=== PATIENT | female | born 1940 | race Caucasian/White ===

== ENCOUNTER → 2016-05-14 | Outpatient (CLI) | payer MEDICARE, BC ==
[2016-05-14 13:46] LABS: Calcium 10.1 mg/dL (8.4-10.2); Total Bilirubin 0.5 mg/dL (0.2-1.3)
== END ==
LOC: LABWHC1 12:45
PROVIDERS: ATTEND Internal Medicine Endocrinology, Diabetes & Metabolism
DX: E21.0 Primary hyperparathyroidism (principal); E03.8 Other specified hypothyroidism
CPT/HCPCS: 36415; 80053; 82306; 83970; 84443

== ENCOUNTER → 2016-05-28 | Outpatient (CLI) | payer MEDICARE, BC ==
--- NOTE | 2016-05-29 09:54 | MM ---
Reason for exam: screening (asymptomatic). Last mammogram was performed 5 years and 5 months ago. History: Patient is postmenopausal. Benign left mammotome panel of the left breast, December 22, 2010. Benign excisional biopsy of both breasts, 1979. Took estrogen for 9 years beginning at age 55. Physical Findings: A clinical breast exam by your physician is recommended on an annual basis and results should be correlated with mammographic findings. MG 3D Screening Mammo W/Cad Bilateral CC and MLO view(s) were taken. Prior study comparison: December 13, 2010, [facility] DIGITAL LEFT BREAST MAMMOGRAM w/CAD. December 07, 2010, bilateral digital screening mammo w/CAD. There are scattered fibroglandular densities. Finding: There are typically benign calcifications. There is no discrete abnormality. No significant changes in finding since December 13, 2010 and December 07, 2010. ASSESSMENT: Benign, BI-RAD 2 RECOMMENDATION: Routine screening mammogram of both breasts in 1 year.
== END ==
LOC: RADMAMWWP 07:42
PROVIDERS: ATTEND Family Medicine
DX: Z12.31 Encounter for screening mammogram for malignant neoplasm of breast (principal)
CPT/HCPCS: 77063; G0202

== ENCOUNTER → 2016-05-28 | Outpatient (CLI) | payer MEDICARE, BC ==
--- NOTE | 2016-05-28 15:18 | BD ---
EXAMINATION TYPE: MG DEXA axial skeleton. DATE OF EXAM: 05/28/2016 7:46 AM COMPARISON: NONE CLINICAL HISTORY: 75-year-old female primary hyperparathyroidism Height: 62.5 IN Weight: 148 LBS FRAX RISK QUESTIONS: Alcohol (3 or more units per day): NO Family History (Parent hip fracture): NO Glucocorticoids (More than 3mos): NO (Ex: prednisone, prednisolone, methylprednisolone, dexamethasone, and hydrocortisone). History of Fracture in Adulthood: YES LT HAND AGE 54 Secondary Osteoporosis: 1. Type 1 Diabetes: NO 2. Hyperthyroidism: YES 3. Menopause before 45: NO 4. Malnutrition: NO 5. Chronic liver disease: NO Rheumatoid Arthritis: NO Current Tobacco Use: NO RISK FACTORS HISTORY OF: Other Fractures since Age 49: YES LT HAND When: AGE 54 Family History of Osteoporosis: NO Active: YES Postmenopausal woman: AGE 55 Take estrogen and/or progesterone medications: NOT NOW How long: AGE 55 - 64 Hyperthyroidism: YES Hyperparathyroidism: YES MEDICATIONS: Thyroid Medications: YES Which medication: Levothyroxine How Lon + YRS Additional Medications: VIT D3, LEVOTHYROXINE, BLOOD PRESSURE MEDS, LIPITOR, ASPIRIN, EXAM MEASUREMENTS: Bone mineral densitometry was performed using the [employer] System. Bone mineral density as measured about the Lumbar spine is: ----- L1-L4(G/cm2): 0.980 T Score Values are as follows: ----- L2: -1.7 ----- L3: -1.0 ----- L4: -1.8 ----- L1-L4: -1.7 Bone mineral density has: Decreased -10.1% since study of: 08/09/2004 Bone mineral density about the R hip (g/cm2): 0.788 Bone mineral density about the L hip (g/cm2): 0.798 T Score values are as follows: -----R Neck: -1.8 -----L Neck: -1.7 -----R Intertrochanter: -1.0 -----L Intertrochanter: -0.7 Bone mineral density has: Decreased -9.5% since study of: 08/09/2004 IMPRESSION: Osteopenia as indicated by T score values in the lumbar spine and both hips. There is slightly increased risk of fracture and the patient may be considered for treatment. Re-Screen 2-5 years. NOTE: T-SCORE=SD OF THE YOUNG ADULT MEAN.
== END | disposition home or self-care (01) ==
LOC: RADBDWWP 07:45
PROVIDERS: ATTEND Internal Medicine Endocrinology, Diabetes & Metabolism
DX: M85.89 Other specified disorders of bone density and structure, multiple sites (principal)
CPT/HCPCS: 77080

== ENCOUNTER → 2016-08-06 | Outpatient (CLI) | payer MEDICARE, BC ==
[2016-08-06 12:00] LABS: Calcium 9.7 mg/dL (8.4-10.2); Potassium 4.9 mmol/L (3.5-5.1); Total Bilirubin 0.3 mg/dL (0.2-1.3); Total Protein 6.8 g/dL (6.3-8.2)
== END | disposition home or self-care (01) ==
LOC: LABWHC1 11:03
PROVIDERS: ATTEND Internal Medicine Endocrinology, Diabetes & Metabolism
DX: E21.0 Primary hyperparathyroidism (principal); E03.8 Other specified hypothyroidism
CPT/HCPCS: 36415; 80053; 82306; 83970; 84443

== ENCOUNTER → 2016-11-14 | Outpatient (CLI) | payer MEDICARE, BC ==
[2016-11-14 10:42] LABS: CH 30.4; CHCM 33.5; HCT 34.9 % (34.0-46.0); HDW 2.37; MCH 28.9 pg (25.0-35.0); MCHC 31.6 g/dL (31.0-37.0); MCV 91.2 fL (80.0-100.0); Mean Platelet Volume 7.5; RBC 3.82 m/uL (3.80-5.40); RDW 13.8 % (11.5-15.5); WBC 6.4 k/uL (3.8-10.6)
[2016-11-14 11:23] LABS: Calcium 9.2 mg/dL (8.4-10.2); Potassium 4.3 mmol/L (3.5-5.1); Total Bilirubin 0.3 mg/dL (0.2-1.3); Total Protein 6.9 g/dL (6.3-8.2)
== END | disposition home or self-care (01) ==
LOC: LABWHC1 10:20
PROVIDERS: ATTEND Internal Medicine Endocrinology, Diabetes & Metabolism
DX: E21.0 Primary hyperparathyroidism (principal); E03.8 Other specified hypothyroidism
CPT/HCPCS: 36415; 80053; 82306; 83970; 84443; 85027

== ENCOUNTER → 2016-11-22 | Outpatient (CLI) | payer MEDICARE, BC ==
--- NOTE | 2016-11-22 13:11 | XR ---
Lumbosacral spine HISTORY: Low back pain 5 views of the lumbosacral spine No comparisons Lumbar vertebral bodies show reduced bone mineralization. Anterolisthesis grade 1 L5-S1 with associat ed loss of disc height. There is multilevel spondylosis. Sclerosis present in the posterior elements. No spondylolysis is evident. There is a mild spinal curvature. Surgical jaime in the right upper q uadrant. Lumbar vertebral body height is maintained. IMPRESSION: Osteopenia, degenerative disc disease, facet arthropathy, spondylolisthesis, scoliosis. N o acute fracture or subluxation.
== END ==
LOC: RADXRYALE 11:56
PROVIDERS: ATTEND Physician Assistant Medical
DX: M43.16 Spondylolisthesis, lumbar region (principal); M51.36 Other intervertebral disc degeneration, lumbar region; M46.86 Other specified inflammatory spondylopathies, lumbar region; M41.86 Other forms of scoliosis, lumbar region; M85.80 Other specified disorders of bone density and structure, unspecified site
CPT/HCPCS: 72110

== ENCOUNTER → 2017-01-02 | Outpatient (CLI) | payer MEDICARE, BC | END | disposition home or self-care (01) | LOC: LABWHC1 10:43 | PROVIDERS: ATTEND Internal Medicine Endocrinology, Diabetes & Metabolism | DX: Z53.9 Procedure and treatment not carried out, unspecified reason (principal) ==

== ENCOUNTER → 2017-06-04 | Outpatient (CLI) | payer MEDICARE, BC ==
--- NOTE | 2017-06-04 15:52 | US ---
EXAMINATION TYPE: US thyroid st tissue head/neck DATE OF EXAM: 06/04/2017 COMPARISON: US CLINICAL HISTORY: E03.9 hypothyroidism E21.3 hyperparathyroidism...; patient state feels palpable upp er bilateral neck and history of lower parathyroid nodule removed GLAND SIZE: Right Lobe: 4.5 x 1.2 x 1.1 cm Overall Parenchyma: homogenous Left Lobe: 3.4 x 1.2 x 1.4 cm Overall Parenchyma: homogeneous Isthmus Thickness: 0.3 cm NODULES RIGHT: # of nodules measured on right: 0 LEFT: # of nodules measured on left: 0 ISTHMUS: # of nodules measured in the isthmus: 0 Bilateral neck scanned: superior to right thyroid an oval hypoechoic mass is noted at patient's c/o p alpable and size =1.0 x 1.1 x 0.5cm and may be lymph node. IMPRESSION: Probable lymph node as noted above. Thyroid gland is unremarkable.
== END | disposition home or self-care (01) ==
LOC: RADUSWWP 14:56
PROVIDERS: ATTEND Family Medicine
DX: E03.9 Hypothyroidism, unspecified (principal); E21.3 Hyperparathyroidism, unspecified; R49.0 Dysphonia
CPT/HCPCS: 76536

== ENCOUNTER → 2017-07-26 | Outpatient (CLI) | payer MEDICARE, BC ==
--- NOTE | 2017-07-27 09:58 | CT ---
EXAMINATION TYPE: CT soft tissue neck wo con DATE OF EXAM: 07/26/2017 HISTORY: Pain; Hoarseness COMPARISON: NONE CT DLP: 282.2 mGycm. Automated Exposure Control for Dose Reduction was Utilized. TECHNIQUE: Departmental protocol with imaging from the nasopharynx contiguously to the tino. Intra venous contrast was not used. Axial and coronal and sagittal sequences were obtained. FINDINGS: Airway: There is mild/moderate airway effacement on the left at the level of the left vallecula and p iriform sinus; direct visualization can further characterize. Salivary glands: No gross abnormality seen. Vascular Structures: Mild atherosclerotic intimal calcifications appreciated, no ectasia. Cervical/supraclavicular adenopathy: None. Osseous Structures: No focal findings. Relatively mild multilevel cervical spondylosis changes are no radames. Other: The sphenoid sinus, bilateral ethmoids, and bilateral maxillary sinuses are clear. Bilateral m iddle ear cavities and lateral mastoid sinus air cells are clear. IMPRESSION: 1. Effacement of the left vallecula and piriform sinus, request direct visualization. 2. No adenopathy.
== END | disposition home or self-care (01) ==
LOC: RADCTMAIN 09:06
PROVIDERS: ATTEND Internal Medicine
DX: R49.0 Dysphonia (principal)
CPT/HCPCS: 70490

== ENCOUNTER → 2017-09-30 | Outpatient (CLI) | payer MEDICARE, BC | END | disposition home or self-care (01) | LOC: LABWHC1 13:36 | PROVIDERS: ATTEND Otolaryngology | DX: E06.9 Thyroiditis, unspecified (principal) | CPT/HCPCS: 36415; 86376 ==

== ENCOUNTER → 2019-01-05 | Outpatient (CLI) | payer MEDICARE, BC ==
[2019-01-05 12:33] VITALS: BP 147/63; PULSE 86; RESP 16
--- NOTE | 2019-01-05 13:21 | P.PAINCN ---
History of Present Illness - Reason for Consult Consult date: 01/05/19 - History of Present Illness This is a 78 years old female with a chronic history of severe neck pain started more than 2 years ago, which is increased with any neck movement, intensity of the pain increased over the last few months, it's constant and increases with any neck movement, patient denies any motor deficit in her upper extremity, she reports a few rare occasions of numbness and tingling sensation of the medial aspect of her left hand, she reported that the intensity of the pain is 6/10 increased with any activity, interfering with her quality of life, she denies any fever or night sweats which she denies any change in the bowel movements or urination, she tried physical therapy with minimal benefit, she tried steroid orally and she had only short-term benefit from it . Past Medical History Past Medical History: Hyperlipidemia, Hypertension, Osteoarthritis (OA), Thyroid Disorder Additional Past Medical History / Comment(s): hx shingles and [place] Palsy on lt side History of Any Multi-Drug Resistant Organisms: None Reported Past Surgical History: Appendectomy, Breast Surgery, Cholecystectomy, Hysterectomy, Orthopedic Surgery Additional Past Surgical History / Comment(s): benign tumors removed from bilat breat. bilat foot sx. colonoscopy Past Anesthesia/Blood Transfusion Reactions: Motion Sickness Smoking Status: Never smoker - Past Family History Mother Family Medical History: Cancer Medications and Allergies Home Medications Medication Instructions Recorded Confirmed Type Aspirin 325 mg PO DAILY 01/01/19 01/01/19 History Atorvastatin [Lipitor] 40 mg PO DAILY 01/01/19 01/01/19 History Enalapril [Vasotec] 10 mg PO BID 01/01/19 01/01/19 History Gabapentin [Neurontin] 300 mg PO DAILY PRN 01/01/19 01/01/19 History Levothyroxine Sodium [Synthroid] 50 mcg PO DAILY 01/01/19 01/01/19 History amLODIPine [Norvasc] 5 mg PO DAILY 01/01/19 01/01/19 History Allergies Allergy/AdvReac Type Severity Reaction Status Date / Time bee venom protein (honey bee) Allergy Anaphylaxis Verified 01/01/19 15:24 codeine Allergy Rash/Hives Verified 01/01/19 15:24 erythromycin base Allergy Rash/Hives Verified 01/01/19 15:24 Penicillins Allergy Rash/Hives Verified 01/01/19 15:24 Sulfa (Sulfonamide Allergy Rash/Hives Verified 01/01/19 15:24 Antibiotics) vancomycin Allergy Rash/Hives Verified 01/01/19 15:24 Physical Exam Vitals: Vital Signs Pulse Resp BP Pulse Ox 01/05/19 12:30 86 16 147/63 100 REVIEW OF ORGAN SYSTEMS: CONSTITUTIONAL: No fevers or chills. No recent weight loss. EYES: denies troubles with vision. HEENT: No difficulties with hearing. No nosebleeds. No difficulty swallowing. RESPIRATORY: Denies any troubles with breathing or dyspnea on exertion. CARDIOVASCULAR: Denies any chest pain, palpitations, or recent heart attacks. GASTROINTESTINAL: Denies fatty food intolerance. Has change in bowel habits and gas bloat. GENITOURINARY: Denies any blood in urine. Has increased urinary frequency. NEUROLOGICAL: no numbness and tingling along the upper extremities. No seizure disorders or headaches. MUSCULOSKELETAL: Has neck pain. Mainly on the left side SKIN:no skin cancer. No rash. PSYCHIATRIC: Denies current depression or suicidal thoughts. ENDOCRINE: Denies current thyroid disorders. Denies any blood sugar glucose intolerance. HEME/LYMPHATIC: Denies any lumps and bumps around the neck. History of deep venous thrombosis. ALLERGY/IMMUNOLOGY: No immunoglobulin therapy. No immune deficiencies. BREAST: Denies current breast lumps, pain or nipple discharge. Physical Examinations : Constitutiona : Cooperative , not in acute distress . HEENT : nech : supple , no Lymphadenopathy , normal thyroid size . : eyes no ptosis , no icterus, no photophobia . : ENT normal of hearing , normal oropharynx , no Thrush . Respiratory : Chest clear to auscultations Bilaterally , no wheezing , no Rhonchi . Cardiovascula : regular rate and rhythem , S1 , S2 , no S3 , no S4. Gastrointestina : abdomen soft no tenderness , bowel sounds , no organomegally . Genitourinary : Defferred . neurologic : Cranial nerve II to XII intact , no focal neurological deffecit . psychatric : alert , oriented X 3 , appropriate affect , intact judgment and insight . Lymphatic : no Lymphadenopathy . musculoskeltal : Cervical Spine motor stregnth in the deltoid and biceps, normal right side , normal Left side motor stregnth biceps and the wrist extensors normal right side ,normal left side . motor stregnth in the triceps muscle . normal Right side , normal Left side deep tendon reflexes= normal at the biceps , normal at Brachioradialis , normal at triceps. cervical facet loading test: Positive on the left side Spurling test= positive on the left side . Neck distraction test= positive on the left side . Steve sign= positive on the left side . Lumber spine moter stegnth lower extremities ,thigh and legs 5/5 Right side , 5/5 Left side Results Comments: MRI of the cervical spine done at [facility] showed C3 4 C4 5 and C5 6 C6 7 bulging disc disease Assessment and Plan Plan: Assessment and plan= chronic neck pain secondary to cervical degenerative disc disease and cervical spondylosis with cervical facet arthropathy Patient will be scheduled to have cervical epidural steroid injection at C6 7 or C7-T1 left paramedian approach, if she continued to have neck pain after the epidural steroid injection then she will be a candidate to have diagnostic medial branch block cervical area Time with Patient: Greater than 30 PQRS Measure Charge Sheet Measure #130: Documentation of Current Meds in Medical Chart: Patient's medications documented in chart Measure #226: Tobacco Use: Screen & Cessation Intervention: Pt not a tobacco user Measure #111: Pneumonia Vaccination: Pneumococcal vaccine administered or previously received Measure #47: Advance Care Plan: Advance care planning discussed & documented, pt chose/unable to give Measure #412: Opioid Treatment Agreement: No documentation of signed opioid treatment agreement Measure #408: Opioid Therapy Follow-up Evaluation: Patient had NO f/u eval minimum every 3 months during opioid therapy Measure #317: Preventitive Care & Scrn High Bld Press & F/U: Pre-hypertensive or hypertensive BP documented, pt will f/u with PCP Measure #128: Body Mass Index (BMI) Screening & Follow-up: BMI documented within normal parameters Measure #131: Pain Assessment & Follow-up: Pain positive & plan documented, Follow-up scheduled Measure #431: Unhealthy Alcohol Use Preventative Care & Scrn: Patient not eleazar ntified as an unhealthy alcohol user PQRS Narrative: Smoking Status Never smoker Blood Pressure 147/63 Pain Intensity [Left Neck] 4 Scale Used Numeric (1 - 10) Hx Alcohol Use (MH) No Home Medications: Ambulatory Orders Aspirin 325 mg PO DAILY 01/01/19 Atorvastatin [Lipitor] 40 mg PO DAILY 01/01/19 Enalapril [Vasotec] 10 mg PO BID 01/01/19 Gabapentin [Neurontin] 300 mg PO DAILY PRN 01/01/19 Levothyroxine Sodium [Synthroid] 50 mcg PO DAILY 01/01/19 amLODIPine [Norvasc] 5 mg PO DAILY 01/01/19
== END | disposition home or self-care (01) ==
LOC: PNWHC3 11:45
PROVIDERS: ATTEND Specialist
DX: M47.812 Spondylosis without myelopathy or radiculopathy, cervical region (principal); M50.30 Other cervical disc degeneration, unspecified cervical region; I10 Essential (primary) hypertension; M19.90 Unspecified osteoarthritis, unspecified site; E07.9 Disorder of thyroid, unspecified; E78.5 Hyperlipidemia, unspecified; Z88.0 Allergy status to penicillin; Z79.82 Long term (current) use of aspirin; Z79.891 Long term (current) use of opiate analgesic; Z79.899 Other long term (current) drug therapy; Z79.890 Hormone replacement therapy; Z88.1 Allergy status to other antibiotic agents; Z88.2 Allergy status to sulfonamides; Z88.5 Allergy status to narcotic agent; Z91.030 Bee allergy status; Z98.890 Other specified postprocedural states
CPT/HCPCS: 99211

== ENCOUNTER 2019-01-13 08:20 | Day surgery (SDC) | payer MEDICARE, BC ==
[2019-01-07 13:09] VITALS: BMI 23.0
[2019-01-13 09:14] VITALS: RESP 16; TEMP 97
[2019-01-13] MEDS: LACTATED RINGERS 1,000 ML IV SCH ×2 (09:24→10:02)
[2019-01-13] MEDS ORDERED: LIDOCAINE 1% 20 ML VIAL (10MG/ML) FOR IV START INTRADERMA ONE (09:24)
--- NOTE | 2019-01-13 10:19 | P.PCN ---
Date of Procedure: 01/13/19 Procedure(s) Performed: . PROCEDURE 1. Cervical epidural steroid injection under fluoroscopic guidance, C6-7 (fluoroscopy images available in the radiology department ) 2. Cervical epidurogram. PREOPERATIVE DIAGNOSIS: 1- Cervical Degenerative Disc Diseases 2-cervical spondylosis with cervical Facet arthropathy without myelopathy POSTOPERATIVE DIAGNOSIS: : 1- Cervical Degenerative Disc Diseases , 2-cervical spondylosis with cervical Facet arthropathy without myelopathy ANESTHESIA: Local anesthesia with lidocaine 1 % 3 ml only . EBL 0 PROCEDURE INDICATION: The patient with neck pain and radiculitis unresponsive to conservative treatment consents for procedure. PROCEDURE DESCRIPTION / TECHNIQUE: The patient was seen and identified in the preoperative area. Risks, benefits, complications, including but not limited to infections ,bleeding , allergic reactions to the medications ,and not complete pain releife, and alternatives were discussed with the patient, the patient agreed to proceed with the procedure and signed the consent. Patient was taken to the OR and time out was completed. The patient was placed in the prone position on the procedure table. A pillow was placed under the patients chest to increase the cervical interlaminar space. The cervical area was prepped and draped in the usual sterile fashion. Vital signs were closely monitored during the procedure. Using anterior-posterior fluoroscopy, the C6-7 interlaminar space was identified and the skin over this site was marked and then infiltrated with 1% lidocaine subcutaneously. Subsequently, a 20-gauge 3-1/2-inch Tuohy epidural needle was inserted and advanced toward the epidural space by means of the ``hanging-drop technique and guided by AP and lateral fluoroscopy. The correct needle position in the epidural space was verified with the injection of 2 mL of the water soluble contrast dye [id number]-200 and observing an excellent epidurogram with the epidural spread of the dye, after negative aspiration for blood and CSF and in the absence of paresthesias. Again after negative aspiration, mixture containing 20 mg Dexamethasone and 2 ml of preservative-free normal saline injected and a washout of epidurogram was seen. Needle was withdrawn intact, skin was cleansed, and bandages were applied. Complications= none. Disposition= patient was placed in supine position and transferred to the recovery room area in stable condition and there was no evidence of upper or lower extremity motor or sensory deficit after the procedure patient was discharged from recovery room after discharge criteria met and home discharge instructions was given by the staff and patient will follow with the pain clinic in 2-4 weeks
[2019-01-13] MEDS ORDERED: LACTATED RINGERS 1,000 ML IV ONE (10:28)
[2019-01-13 10:46] VITALS: BP 157/67; PULSE 80
--- NOTE | 2019-01-13 10:47 | FL ---
EXAMINATION TYPE: FL guided pain mgmt statistic DATE OF EXAM: 01/13/2019 HISTORY: Flouroscopy time 12 seconds of fluoroscopy provided. IMPRESSION: 1. Fluoroscopy time.
== END 2019-01-13 10:58 | disposition home or self-care (01) ==
LOC: ORPAIN 08:20
PROVIDERS: ATTEND Specialist
DX: G89.29 Other chronic pain (principal); M47.22 Other spondylosis with radiculopathy, cervical region; M50.123 Cervical disc disorder at C6-C7 level with radiculopathy; I10 Essential (primary) hypertension; M19.90 Unspecified osteoarthritis, unspecified site; E78.5 Hyperlipidemia, unspecified; E07.9 Disorder of thyroid, unspecified; Z86.19 Personal history of other infectious and parasitic diseases; G51.0 Bell's palsy; Z90.49 Acquired absence of other specified parts of digestive tract; Z98.890 Other specified postprocedural states; Z90.710 Acquired absence of both cervix and uterus; Z79.82 Long term (current) use of aspirin; Z79.890 Hormone replacement therapy; Z79.899 Other long term (current) drug therapy; Z91.030 Bee allergy status; Z88.5 Allergy status to narcotic agent; Z88.1 Allergy status to other antibiotic agents; Z88.0 Allergy status to penicillin; Z88.2 Allergy status to sulfonamides
CPT/HCPCS: 62321; J1100; Q9966

== ENCOUNTER 2019-01-28 08:03 | Day surgery (SDC) | payer MEDICARE, BC ==
[2019-01-27 10:23] VITALS: BMI 23.0
[~2019-01-28 08:03] MED LIST: LACTATED RINGERS 1,000 ML IV SCH
[2019-01-28 08:45] VITALS: RESP 16; TEMP 98.1
[2019-01-28] MEDS ORDERED: LIDOCAINE 1% 20 ML VIAL (10MG/ML) FOR IV START INTRADERMA ONE (08:45)
--- NOTE | 2019-01-28 09:18 | P.PCN ---
Date of Procedure: 01/28/19 Procedure(s) Performed: PROCEDURE 1. Cervical epidural steroid injection under fluoroscopic guidance, C6-7 (fluoroscopy images available in the radiology department ) 2. Cervical epidurogram. PREOPERATIVE DIAGNOSIS: 1- Cervical Degenerative Disc Diseases 2-cervical spondylosis with cervical Facet arthropathy without myelopathy POSTOPERATIVE DIAGNOSIS: : 1- Cervical Degenerative Disc Diseases , 2-cervical spondylosis with cervical Facet arthropathy without myelopathy ANESTHESIA: Local anesthesia with lidocaine 1 % 3 ml only . EBL 0 PROCEDURE INDICATION: The patient with neck pain and radiculitis unresponsive to conservative treatment consents for procedure. PROCEDURE DESCRIPTION / TECHNIQUE: The patient was seen and identified in the preoperative area. Risks, benefits, complications, including but not limited to infections ,bleeding , allergic reactions to the medications ,and not complete pain releife, and alternatives were discussed with the patient, the patient agreed to proceed with the procedure and signed the consent. Patient was taken to the OR and time out was completed. The patient was placed in the prone position on the procedure table. A pillow was placed under the patients chest to increase the cervical interlaminar space. The cervical area was prepped and draped in the usual sterile fashion. Vital signs were closely monitored during the procedure. Using anterior-posterior fluoroscopy, the C6-7 interlaminar space was identified and the skin over this site was marked and then infiltrated with 1% lidocaine subcutaneously. Subsequently, a 20-gauge 3-1/2-inch Tuohy epidural needle was inserted and advanced toward the epidural space by means of the ``hanging-drop technique and guided by AP and lateral fluoroscopy. The correct needle position in the epidural space was verified with the injection of 2 mL of the water soluble contrast dye [id number]-200 and observing an excellent epidurogram with the epidural spread of the dye, after negative aspiration for blood and CSF and in the absence of paresthesias. Again after negative aspiration, mixture containing 20 mg Dexamethasone and 2 ml of preservative-free normal saline injected and a washout of epidurogram was seen. Needle was withdrawn intact, skin was cleansed, and bandages were applied. Complications= none. Disposition= patient was placed in supine position and transferred to the recovery room area in stable condition and there was no evidence of upper or lower extremity motor or sensory deficit after the procedure patient was discharged from recovery room after discharge criteria met and home discharge instructions was given by the staff and patient will follow with the pain clinic in 2-4 weeks
[2019-01-28] MEDS ORDERED: LACTATED RINGERS 1,000 ML IV ONE (09:21)
[2019-01-28 09:33] VITALS: BP 129/78; PULSE 80
--- NOTE | 2019-01-28 13:09 | FL ---
Fluoroscopy HISTORY: Pain 7 seconds fluoroscopy time supplied to the referring clinician. 1 intraoperative C-arm images docume nt the procedure. See dictated report from anesthesia.
== END 2019-01-28 09:58 | disposition home or self-care (01) ==
LOC: ORPAIN 08:03
PROVIDERS: ATTEND Specialist
DX: M50.10 Cervical disc disorder with radiculopathy, unspecified cervical region (principal); M47.22 Other spondylosis with radiculopathy, cervical region; E03.9 Hypothyroidism, unspecified; Z88.0 Allergy status to penicillin; Z88.2 Allergy status to sulfonamides; Z88.5 Allergy status to narcotic agent; Z88.1 Allergy status to other antibiotic agents; Z79.82 Long term (current) use of aspirin
CPT/HCPCS: 62321; J1100; Q9966

== ENCOUNTER → 2020-04-26 | Outpatient (CLI) | payer MEDICARE, BC ==
--- NOTE | 2020-04-26 13:31 | XR ---
EXAMINATION TYPE: XR chest 2V DATE OF EXAM: 04/26/2020 COMPARISON: 11/30/2011 TECHNIQUE: PA and lateral views submitted. HISTORY: Chest pain FINDINGS: The lungs are clear and there is no pneumothorax, pleural effusion, or focal pneumonia. Coarsened i nterstitium. Heart size normal. No pneumothorax. IMPRESSION: 1. Coarsened interstitium with basilar subsegmental atelectasis favored over pneumonia. Correlate for chronic interstitial lung disease, interstitial pneumonitis both of which are favored over venous co ngestion.
== END ==
LOC: RADXRMAIN 13:04
PROVIDERS: ATTEND Internal Medicine
DX: J98.11 Atelectasis (principal)
CPT/HCPCS: 71046

== ENCOUNTER → 2020-05-05 | Outpatient (CLI) | payer MEDICARE, BC ==
[~2020-05-05] MED LIST changes: -LACTATED RINGERS 1,000 ML IV SCH; +REGADENOSON 0.4 MG/5 ML SYRINGE IV PRN
--- NOTE | 2020-05-05 11:22 | P.STRESS ---
- Stress Test Note Stress Test Results/Findings: Exam Performed: NM stress lexiscan cardiolite Exam Date: 05/05/20 Reason for Exam: CHEST PAIN Height: 5 ft 3 in Weight: 61.4 kg Protocol: LEXISCAN Stage: N/A Duration of Exercise: 6 MINUTES Resting Heart Rate: 76 Resting Blood Pressure: 143/73 Maximum Achieved Heart Rate: 89 Maximum Achieved Blood Pressure: 143/73 85% PMHR: 119 100% PMHR: 140 METS: N/A Technologist Comment: Stress Test Results/Findings: This is a 79-year-old female with history of hypertension, family history and hypercholesteremia being evaluated for symptoms of chest pain. Stress data: Baseline EKG showed sinus rhythm with normal RI interval and QRS duration. A standard dose of Lexiscan was infused. EKGs during and after infusion did not reveal any significant changes. Final impression: #1. Negative Lexiscan stress test #2. Report on the nuclear images to be provided by the radiologist
--- NOTE | 2020-05-05 12:32 | NM ---
EXAMINATION TYPE: NM stress lexiscan cardiolite DATE OF EXAM: 05/05/2020 COMPARISON: NONE HISTORY: Chest pain TECHNIQUE: After the intravenous administration of 9.5 mCi Tc 99m Sestamibi - Cardiolite resting SPE CT images acquired 45 minutes post injection. The patient received 0.4mg Lexiscan, 24.5 mCi Tc 99m Sestamibi - Stress images obtained [address] injection FINDINGS: Review of stress and rest SPECT images demonstrates no distinct perfusion abnormality. Gated analysi s shows normal wall motion with an estimated left ventricular ejection fraction of 91 %. IMPRESSION: No scintigraphic evidence for reversible ischemia.
--- NOTE | 2020-05-06 10:07 | ECHOS ---
Stress Test Results/Findings: Exam Performed: NM stress lexiscan cardiolite Exam Date: 05/05/20 Reason for Exam: CHEST PAIN Height: 5 ft 3 in Weight: 61.4 kg Protocol: LEXISCAN Stage: N/A Duration of Exercise: 6 MINUTES Resting Heart Rate: 76 Resting Blood Pressure: 143/73 Maximum Achieved Heart Rate: 89 Maximum Achieved Blood Pressure: 143/73 85% PMHR: 119 100% PMHR: 140 METS: N/A Technologist Comment: Stress Test Results/Findings: This is a 79-year-old female with history of hypertension, family history and hypercholesteremia being evaluated for symptoms of chest pain. Stress data: Baseline EKG showed sinus rhythm with normal NH interval and QRS duration. A standard dose of Lexiscan was infused. EKGs during and after infusion did not reveal any significant changes. Final impression: #1. Negative Lexiscan stress test #2. Report on the nuclear images to be provided by the radiologist FRACISCO
== END | disposition home or self-care (01) ==
LOC: RADNMMAIN 07:52
PROVIDERS: ATTEND Internal Medicine
DX: R07.9 Chest pain, unspecified (principal)
CPT/HCPCS: 93017; 78452; A9500; J2785

== ENCOUNTER → 2020-05-12 | Outpatient (CLI) | payer MEDICARE, BC ==
--- NOTE | 2020-05-12 13:43 | CT ---
EXAMINATION TYPE: CT chest wo con DATE OF EXAM: 05/12/2020 COMPARISON: None HISTORY: Previous abnormal CXR CT DLP: 244.60 mGycm High-resolution noncontrast CT of the chest was performed with the patient in the prone and supine po sitions. Lung and mediastinal window settings are submitted. The lungs appear to be well-aerated. Scattered subpleural fibrosis noted. There is no evidence for br onchiectasis, groundglass infiltrate, nodule or mass. No pleural effusion is identified. I do not s ee evidence for hilar or mediastinal mass or adenopathy. IMPRESSION: Mild subpleural fibrosis identified.
== END | disposition home or self-care (01) ==
LOC: RADCTMAIN 12:57
PROVIDERS: ATTEND Internal Medicine
DX: J84.10 Pulmonary fibrosis, unspecified (principal)
CPT/HCPCS: 71250

== ENCOUNTER → 2021-01-06 | Outpatient (CLI) | payer MEDICARE, BC ==
--- NOTE | 2021-01-06 08:50 | CT ---
EXAMINATION TYPE: CT brain wo con DATE OF EXAM: 01/06/2021 COMPARISON: 11/30/[address] 12/25/2020 HISTORY: 80-year-old female Dizziness and giddiness TECHNIQUE: Examination was done in axial plane without intravenous contrast. Coronal and sagittal r econstructions performed. CT DLP: 945.5 mGycm Automated exposure control for dose reduction was used. FINDINGS: There is asymmetric 5 mm accentuation of the extra-axial CSF space in the right frontal region, refer to axial image 22. This appears increased compared to 12/25/2020. There is no evidence of acute intracranial hemorrhage, acute ischemic changes, mass, mass-effect, or extra-axial fluid collection. There is no effacement of cerebral sulci or basal subarachnoid cister ns. There is no hydrocephalus. There is no midline shift. Aguilar-white matter distinction is preserv ed. Mild patchy white matter hypodensity both cerebral hemispheres. Mild cerebral cortical volume loss. Rightward nasal septal deviation. Left-sided carlos bullosa. Paranasal sinuses and mastoid air cells are well pneumatized. Orbits and globes are intact. Small scalp hematoma remains along the right parietal convexity, decreased in size from recent outsid e prior exam. IMPRESSION: 1. New, asymmetric 5 mm accentuation of the extra-axial CSF space along the right frontal convexity. As no acute intracranial hemorrhage was seen on the recent 12/25/[address], consider a new small subdural hygroma. Mild patchy burden of chronic small vessel ischemic disease. No acute intracranial abnormality otherwise seen. 2. Decreasing size of the scalp hematoma along the right parietal convexity. A
== END | disposition home or self-care (01) ==
LOC: RADCTMAIN 07:02
PROVIDERS: ATTEND Family Medicine
DX: S00.03XA Contusion of scalp, initial encounter (principal); I67.82 Cerebral ischemia
CPT/HCPCS: 70450

== ENCOUNTER → 2021-01-30 | Outpatient (CLI) | payer MEDICARE, BC ==
--- NOTE | 2021-01-30 11:00 | XR ---
EXAMINATION TYPE: XR clavicle RT DATE OF EXAM: 01/30/2021 COMPARISON: NONE HISTORY: Pain TECHNIQUE: 2 view submitted FINDINGS: There is a fracture of the distal margin of the clavicle with elevation of the clavicle sug gestive of AC joint injury. Diffuse osteopenia. Lung apices are clear. IMPRESSION: 1. Age-indeterminate displaced fracture distal clavicle. Suspect AC joint separation. Correlate clini jonas.
== END | disposition home or self-care (01) ==
LOC: RADXRYALE 10:42
PROVIDERS: ATTEND Physician Assistant Medical
DX: S42.034A Nondisplaced fracture of lateral end of right clavicle, initial encounter for closed fracture (principal); X58.XXXA Exposure to other specified factors, initial encounter

== ENCOUNTER → 2021-08-16 | Outpatient (CLI) | payer MEDICARE, BC ==
--- NOTE | 2021-08-16 14:11 | US ---
EXAMINATION TYPE: US venous doppler duplex LE LT DATE OF EXAM: 08/16/2021 1:32 PM COMPARISON: NONE CLINICAL HISTORY: M79.605 PAIN L LEG R22.42 LOCALIZED SWELLING MASS. SIDE PERFORMED: Left TECHNIQUE: The lower extremity deep venous system is examined utilizing real time linear array sonog rachelle with graded compression, doppler sonography and color-flow sonography. VESSELS IMAGED: Common Femoral Vein Deep Femoral Vein Greater Saphenous Vein * Femoral Vein Popliteal Vein Small Saphenous Vein * Proximal Calf Veins (* superficial vessels) Left Leg: Positive for DVT DEBRIS NOTED IN LEFT DISTAL CALF VEINS AREA OF PAIN, NON COMPRESSIBLE PROVIDER HERON NOTIFIED ADVISED PT TO GO TO ER FOR FURTHER WORKUP, PT REFUSED LEFT AMA, STATES "SHE WI LL RETURN LATER." Grayscale, color doppler, spectral doppler imaging performed of the deep veins of the left lower extr emity. There is normal flow, compressibility, vascular waveforms. IMPRESSION: Acute DVT below the knee at site of patient pain proximal calf veins.
== END | disposition home or self-care (01) ==
LOC: RADUSWWP 12:22
PROVIDERS: ATTEND Family Medicine
DX: I82.402 Acute embolism and thrombosis of unspecified deep veins of left lower extremity (principal)

== ENCOUNTER → 2021-09-11 | Outpatient (CLI) | payer MEDICARE, BC ==
--- NOTE | 2021-09-11 14:46 | XR ---
EXAMINATION TYPE: XR ankle complete LT DATE OF EXAM: 09/11/2021 CLINICAL HISTORY: Pain. TECHNIQUE: Frontal, lateral and oblique images of the left ankle are obtained. COMPARISON: Prior left ankle x-ray August 03, 2014. FINDINGS: There is no acute fracture/dislocation evident in the left ankle. The ankle mortise appea rs within normal limits. The overlying soft tissue appears unremarkable. Moderate to severe narrowin g at cuneiform bones articulation with the base of metatarsals lateral view is noted and can be catina r evaluated on dedicated 3 view foot x-ray. [id number] central narrowing base of first metata rsal noted on oblique image. This can also be better evaluated on dedicated 3 view foot x-ray. IMPRESSION: As above.
--- NOTE | 2021-09-11 15:43 | XR ---
Right shoulder HISTORY: [id number] PAIN RT SHLD/RT HIP AND LT AN 3 views the right shoulder, comparison to right clavicle 01/30/2021 Postop changes are suspected at the level the distal right clavicle, similar appearance to prior exam , distal clavicle remnant is superiorly displaced in relation to the acromion. There is osteoarthriti c change at the glenohumeral joint, shoulder is high riding. There is marginal spurring at the glenoh umeral joint. No evident fracture or dislocation. There is a spinal curvature. Facet arthropathy note d in the cervical spine. Impression: Postop changes. Osteoarthritis. Additional findings above.
--- NOTE | 2021-09-11 15:50 | XR ---
Right hip HISTORY: [id number] PAIN RT SHLD/RT HIP AND LT AN 2 views of the right hip Bone mineralization is reduced. Joint spaces are remarkable for some mild concentric joint space loss . Alignment is maintained. No fracture or dislocation. IMPRESSION: No acute bone abnormalities evident. Hip MRI may be of benefit. Additional findings above .
== END | disposition home or self-care (01) ==
LOC: RADXRYALE 11:50
PROVIDERS: ATTEND Physician Assistant
DX: M19.012 Primary osteoarthritis, left shoulder (principal); M25.511 Pain in right shoulder; M25.551 Pain in right hip; M25.572 Pain in left ankle and joints of left foot
CPT/HCPCS: 73502

== ENCOUNTER → 2022-10-31 | Outpatient (CLI) | payer MEDICARE, BC ==
--- NOTE | 2022-10-31 13:16 | US ---
EXAMINATION TYPE: US venous doppler duplex LE LT DATE OF EXAM: 10/31/2022 1:08 PM COMPARISON: US CLINICAL INDICATION: Female, 82 years old with history of LLE: M79.662; Left leg pain, h/o DVT SIDE PERFORMED: Left TECHNIQUE: The lower extremity deep venous system is examined utilizing real time linear array sonog rachelle with graded compression, doppler sonography and color-flow sonography. VESSELS IMAGED: Common Femoral Vein Deep Femoral Vein Greater Saphenous Vein * Femoral Vein Popliteal Vein Small Saphenous Vein * Proximal Calf Veins (* superficial vessels) Left Leg: Negative for DVT IMPRESSION: No evidence of deep venous thrombosis.
== END | disposition home or self-care (01) ==
LOC: RADUSWWP 12:48
PROVIDERS: ATTEND Family Medicine
DX: M79.662 Pain in left lower leg (principal); Z86.718 Personal history of other venous thrombosis and embolism

== ENCOUNTER → 2022-11-15 | Outpatient (CLI) | payer MEDICARE, BC ==
--- NOTE | 2022-11-15 12:16 | XR ---
EXAMINATION TYPE: XR shoulder complete RT DATE OF EXAM: 11/15/2022 CLINICAL HISTORY: pain TECHNIQUE: Three views of the right shoulder are obtained. COMPARISON: None FINDINGS: There is no acute fracture/dislocation evident. The acromioclavicular and glenohumeral jb int spaces appear mildly narrowed. The visualized ribs are intact and unremarkable. IMPRESSION: 1. There is no acute fracture or dislocation. ICD 10 NO FRACTURE, INITIAL EVALUATION
== END | disposition home or self-care (01) ==
LOC: RADXRYALE 11:32
PROVIDERS: ATTEND Physician Assistant Medical
DX: M25.511 Pain in right shoulder (principal)

== ENCOUNTER → 2023-03-18 | Outpatient (CLI) | payer MEDICARE, BC ==
--- NOTE | 2023-03-18 11:38 | XR ---
EXAMINATION TYPE: XR chest 2V DATE OF EXAM: 03/18/2023 11:11 AM CLINICAL INDICATION:Female, 82 years old with history of R0602,R059 SOB,COUGH; [facility] COMPARISON: Chest radiographs from 04/26/2020 TECHNIQUE: XR chest 2V Frontal and lateral views of the chest. FINDINGS: Lungs/Pleura: There is flattening of the diaphragm with increased lucency of the lungs. No evidence o f pneumothorax, pleural effusion or focal consolidation. Pulmonary vascularity: Unremarkable. Heart/mediastinum: Cardiomediastinal silhouette is unremarkable. Musculoskeletal: Multiple level degenerative disc disease changes seen throughout the spine. IMPRESSION: Chronic changes without acute pulmonary process. No significant change from prior.
== END | disposition home or self-care (01) ==
LOC: RADXRYALE 11:01
PROVIDERS: ATTEND Physician Assistant Medical
DX: R05.9 Cough, unspecified (principal); R06.02 Shortness of breath
CPT/HCPCS: 71046